=== PATIENT | female | born 1995 | race Hispanic/Latino ===

== ENCOUNTER 2017-08-11 05:17 | Emergency (ER) | payer MEDICAID, OTHER ==
[2017-08-11] MEDS ORDERED: SODIUM CHLORIDE 0.9% 1000ML 1,000 ML IV ONE (05:57)
[2017-08-11] MEDS ORDERED: ONDANSETRON HCL MDV 20ML 2 MG/ML VIAL ONE (05:57)
[2017-08-11 06:03] LABS: BASOPHILS % (AUTO) 0.2 % (0.0-5.0); EOSINOPHILS % (AUTO) 1.3 % (0.0-8.0); HEMATOCRIT 39.8 % (36-48); LYMPHOCYTES % (AUTO) 25.5 % (21.0-51.0); MEAN CORPUSCULAR HEMOGLOBIN 30.2 pg (27.0-33.0); MEAN CORPUSCULAR HGB CONC 34.6 g/dL (32.0-36.0); MEAN CORPUSCULAR VOLUME 87.4 fL (80-100); MONOCYTES % (AUTO) 8.9 % (3.0-13.0); NEUTROPHILS % (AUTO) 64.1 % (40.0-77.0); PLATELET COUNT (AUTO) 205 K/uL (130-400); RED BLOOD CELL COUNT(AUTO) 4.55 MIL/uL (4.00-5.50); WHITE BLOOD COUNT (AUTO) 7.5 K/uL (4.8-10.8)
[2017-08-11 06:19] LABS: CREATININE 0.7 mg/dL (0.5-1.5); POTASSIUM 3.6 mmol/L (3.5-5.1)
[2017-08-11 06:24] LABS: ALBUMIN 3.5 g/dL (3.5-5.0); BILIRUBIN,TOTAL 0.6 mg/dL (0.2-1.0); TOTAL PROTEIN, SERUM 7.8 g/dL (6.0-8.3)
== END 2017-08-11 07:01 | disposition home or self-care (01) ==
LOC: EDH 05:17
DX: R19.7 Diarrhea, unspecified (principal); R11.2 Nausea with vomiting, unspecified; R10.9 Unspecified abdominal pain; E78.5 Hyperlipidemia, unspecified
CPT/HCPCS: 36415; 80053; 83690; 84703; 85025; 96361; 96374; 99284; J7030

== ENCOUNTER 2021-09-28 09:04 | Emergency (ER) | payer OTHER ==
[~2021-09-28] VITALS: Ht 165.1 cm; Wt 144.7 kg
[2021-09-28] MEDS ORDERED: ALBUTEROL INHALER 90MCG/INH IH ONE (09:30)
[2021-09-28] MEDS ORDERED: SOLU-MEDROL 125MG VIAL IVP ONE (09:30)
[2021-09-28] MEDS ORDERED: ALBU8.5H8 IH (11:10)
[2021-09-28] MEDS ORDERED: AZIT500T2 PO (11:10)
[2021-09-28] MEDS ORDERED: IBUP-1493 PO (11:10)
[2021-09-28 11:25] VITALS: BP 132/76
== END 2021-09-28 11:24 | disposition home or self-care (01) ==
LOC: EDH 09:04
DX: U07.1 COVID-19 (principal); F17.200 Nicotine dependence, unspecified, uncomplicated
CPT/HCPCS: 71045; 81025; 87635; 96374; C9803; J2930